=== PATIENT | male | born 1950 | race Caucasian/White ===

== ENCOUNTER 2016-08-22 17:48 | Emergency (ER) | payer BC ==
[2016-08-22 18:23] VITALS: BP 108/67
--- NOTE | 2016-08-22 19:02 | UC ---
Throat Pain/Nasal Isaías HPI - HPI Summary HPI Summary: St for a few days, has been around a lot of children with strep. Denies fever, cough, trouble breathing, rash, or vomiting. - History of Current Complaint Chief Complaint: UCGeneralIllness Stated Complaint: SORE THROAT Time Seen by Provider: 08/22/16 18:55 Hx Obtained From: Patient Onset/Duration: Gradual Onset, Lasting Days Severity: Mild Cough: None Associated Signs & Symptoms: Negative: Hoarseness, Sinus Discomfort, Nasal Discharge, Fever, Vomiting, Rash - Allergies/Home Medications Allergies/Adverse Reactions: Allergies Allergy/AdvReac Type Severity Reaction Status Date / Time No Known Allergies Allergy Verified 08/22/16 18:22 Home Medications: Home Medications NK [No Home Medications Reported] 08/22/16 [History Confirmed 08/22/16] PMH/Surg Hx/FS Hx/Imm Hx Respiratory History Of: Reports: Pneumonia - Surgical History Surgical History: Yes Surgery Procedure, Year, and Place: hernia repair - Family History Known Family History: Negative: Blood Disorder - Social History Lives: With Family Alcohol Use: None Substance Use Type: None Smoking Status (MU): Never Smoked Tobacco - Immunization History Most Recent Influenza Vaccination: no Review of Systems Constitutional: Negative Skin: Negative Eyes: Negative ENT: Sore Throat Respiratory: Negative Cardiovascular: Negative Gastrointestinal: Negative Genitourinary: Negative Motor: Negative Neurovascular: Negative Musculoskeletal: Negative Neurological: Negative Psychological: Negative All Other Systems Reviewed And Are Negative: Yes Physical Exam Triage Information Reviewed: Yes Appearance: Well-Appearing, No Pain Distress, Well-Nourished Vital Signs: Initial Vital Signs Temp 98.6 F 08/22/16 18:18 Pulse 76 08/22/16 18:18 Resp 17 08/22/16 18:18 BP 108/67 08/22/16 18:18 Pulse Ox 99 08/22/16 18:18 Vital Signs Reviewed: Yes Eye Exam: Normal Eyes: Positive: Conjunctiva Clear ENT Exam: Normal ENT: Positive: Normal ENT inspection, Hearing grossly normal, Pharynx normal, TMs normal Dental Exam: Normal Neck exam: Normal Neck: Positive: Supple, Nontender, No Lymphadenopathy Respiratory Exam: Normal Respiratory: Positive: Chest non-tender, Lungs clear, Normal breath sounds, No respiratory distress, No accessory muscle use Cardiovascular Exam: Normal Cardiovascular: Positive: RRR, No Murmur Musculoskeletal Exam: Normal Neurological Exam: Normal Neurological: Positive: Alert Psychological Exam: Normal Skin Exam: Normal Throat Pain/Nasal Course/Dx - Differential Dx/Diagnosis Provider Diagnoses: pharyngitis Discharge - Discharge Plan Condition: Stable Disposition: HOME Patient Education Materials: Pharyngitis (ED) Referrals: Sonja Hughes MD [Primary Care Provider] - Additional Instructions: Rapid strep negative. If your symptoms have not improved within 10 days of onset , please follow up with your primary care provider.
== END 2016-08-22 19:05 | disposition home or self-care (01) ==
LOC: UCCORT 17:48
DX: J02.9 Acute pharyngitis, unspecified (principal)
CPT/HCPCS: 87651; 99211; G0463

== ENCOUNTER 2017-05-08 18:53 | Emergency (ER) | payer BC ==
[2017-05-08 19:48] VITALS: BP 123/78
--- NOTE | 2017-05-08 19:51 | UC ---
Abdominal Pain Male HPI - HPI Summary HPI Summary: 67 YEAR OLD MALE PRESENTS WITH LEFT SIDED RIB PAIN AFTER DOING PHYSICAL THERAPY. - History of Current Complaint Chief Complaint: UCChestPain Stated Complaint: PAIN LEFT SIDE Time Seen by Provider: 05/08/17 19:51 Hx Obtained From: Patient Onset/Duration: Sudden Onset Severity Initially: Moderate Severity Currently: Moderate Pain Scale Used: 0-10 Numeric - 8 - Allergies/Home Medications Allergies/Adverse Reactions: Allergies Allergy/AdvReac Type Severity Reaction Status Date / Time No Known Allergies Allergy Verified 05/08/17 19:47 PMH/Surg Hx/FS Hx/Imm Hx Previously Healthy: Yes - Surgical History Surgical History: Yes Surgery Procedure, Year, and Place: hernia repair - Family History Known Family History: Negative: Blood Disorder - Social History Alcohol Use: None Substance Use Type: None Smoking Status (MU): Never Smoked Tobacco - Immunization History Most Recent Influenza Vaccination: no Review of Systems Constitutional: Negative Skin: Negative Eyes: Negative ENT: Negative Respiratory: Negative Cardiovascular: Negative Gastrointestinal: Negative Genitourinary: Negative Motor: Negative Neurovascular: Negative Musculoskeletal: Other: - LEFT SIDED RIB PAIN Neurological: Negative Psychological: Negative All Other Systems Reviewed And Are Negative: Yes Physical Exam Triage Information Reviewed: Yes Vital Signs: Initial Vital Signs Temp 36.8 C 05/08/17 19:41 Pulse 79 05/08/17 19:41 Resp 16 05/08/17 19:41 BP 123/78 05/08/17 19:41 Pulse Ox 100 05/08/17 19:41 Vital Signs Reviewed: Yes Eye Exam: Normal ENT Exam: Normal Dental Exam: Normal Neck exam: Normal Neck: Positive: 1 Respiratory Exam: Normal Cardiovascular Exam: Normal Abdominal Exam: Normal Musculoskeletal: Positive: Other: - LEFT SIDED RIB PAIN Neurological Exam: Normal Psychological Exam: Normal Skin Exam: Normal Abd Pain Male Course/Dx - Differential Dx/Clinical Impression Provider Diagnoses: LEFT SIDED RIB PAIN. LEFT INTERCOSTAL PAIN Discharge - Discharge Plan Condition: Stable Disposition: HOME Prescriptions: Ibuprofen TAB* [Motrin TAB* 800 MG] 800 mg PO Q6H #30 tab Methocarbamol TAB* [Robaxin 500 MG TAB*] 500 mg PO TID PRN #30 tab PRN Reason: Spasms Patient Education Materials: Rib Contusion (ED) Referrals: Non Staff,Doctor [Medical Doctor] -
--- NOTE | 2017-05-08 21:17 | RAD ---
INDICATION: Left rib pain COMPARISON: None TECHNIQUE: Multiple views of the ribs were obtained. FINDINGS: Bones: There is no evidence of acute rib fracture. There is underlying osteopenia LUNGS: The lungs are clear. There is no pneumothorax. Pleural spaces: There is no evidence of hemothorax. There is biapical scarring. Other: None IMPRESSION: NO ACUTE RIB FRACTURE.
== END 2017-05-08 21:27 | disposition home or self-care (01) ==
LOC: UCCORT 18:53
DX: R07.81 Pleurodynia (principal); R07.82 Intercostal pain
CPT/HCPCS: 93005; 99212; G0463

== ENCOUNTER 2019-07-31 10:09 | Emergency (ER) | payer BC ==
--- NOTE | 2019-07-31 11:40 | UC ---
Respiratory Complaint HPI - HPI Summary HPI Summary: 69 yo with onset of fever on 07/25/19, onset after loading hay, with sweats at night, low grade fevers in the day. Minimal cough. He has pain in the lower ribs with inspiration. No production, no shortness of breath. Decreased appetite, but no vomiting or diarrhea. Possible weight loss. Hx of pneumonia and past hx of sepsis. - History of Current Complaint Chief Complaint: UCGeneralIllness Stated Complaint: NIGHTLY FEVER Time Seen by Provider: 07/31/19 11:30 Hx Obtained From: Patient Onset/Duration: Sudden Onset, Lasting Days - 6 Timing: Intermittent Episodes Severity Initially: Moderate Severity Currently: Mild Pain Intensity: 0 Character: Cough: Nonproductive Aggravating Factors: Exertion, Deep Breaths Alleviating Factors: Nothing Associated Signs And Symptoms: Positive: Fever, Chills. Negative: Wheezing, Dizziness, URI, Nasal Congestion, Hoarseness - Risk Factors Pulmonary Embolism Risk Factors: Negative Cardiac Risk Factors: Negative Pseudomonas Risk Factors: Negative Tuberculosis Risk Factors: Negative - Allergies/Home Medications Allergies/Adverse Reactions: Allergies Allergy/AdvReac Type Severity Reaction Status Date / Time No Known Allergies Allergy Verified 07/31/19 10:45 Home Medications: Home Medications NK [No Home Medications Reported] 07/31/19 [History Confirmed 07/31/19] PMH/Surg Hx/FS Hx/Imm Hx - Additional Past Medical History Additional PMH: past hx of sepsis Previously Healthy: Yes Respiratory History: Pneumonia - Surgical History Surgical History: Yes Surgery Procedure, Year, and Place: hernia repair - Family History Known Family History: Positive: Blood Disorder - mother of leukemia - Social History Occupation: Employed Part-time - [employer]. Alcohol Use: None Substance Use Type: None Smoking Status (MU): Never Smoked Tobacco - Immunization History Most Recent Influenza Vaccination: no Review of Systems All Other Systems Reviewed And Are Negative: Yes Constitutional: Positive: Fever, Chills, Fatigue Skin: Positive: Negative Eyes: Positive: Negative ENT: Negative: Sore Throat, Ear Ache, Sinus Congestion Respiratory: Positive: Cough. Negative: Shortness Of Breath Cardiovascular: Positive: Chest Pain - in lower ribs with deep inspiration Gastrointestinal: Positive: Negative Genitourinary: Positive: Negative Motor: Positive: Negative Neurovascular: Positive: Negative Musculoskeletal: Positive: Negative Neurological/Mental Status: Positive: Negative Psychological: Positive: Negative Is Patient Immunocompromised?: No Physical Exam Vital Signs: Initial Vital Signs Temp 98.3 F 07/31/19 10:38 Pulse 86 07/31/19 10:38 Resp 18 07/31/19 10:38 BP 132/72 07/31/19 10:38 Pulse Ox 100 07/31/19 10:38 Eye Exam: Normal ENT: Positive: Pharynx normal, TMs normal Neck: Positive: Supple, Nontender, No Lymphadenopathy Respiratory: Positive: Lungs clear, Normal breath sounds, No respiratory distress, No accessory muscle use Cardiovascular: Positive: RRR, No Murmur Abdominal Exam: Normal Abdomen Description: Positive: Nontender, No Organomegaly, Soft Musculoskeletal Exam: Normal Neurological Exam: Normal Psychological Exam: Normal Skin Exam: Normal Diagnostics - Radiology No standard instances Radiology Interpretation Completed By: Radiologist - Patient Name: GIOVANNI MAE Medical Record#: [id number] Ordering Physician: Farida Cantu MD Acct.#: [id number] : 1949 Age: 69 Sex: M Location: [facility] Exam Date: 07/31/19 1233 ADM Status: REG ER Order Information: CHEST PA & LAT 2 VWS Accession Number : [id number] CPT: 25113 INDICATION: Cough and fever. History of sepsis COMPARISON: August 07, 2014 chest radiograph TECHNIQUE: Dual-energy PA and lateral views of the chest were obtained. FINDINGS: There is no focal airspace opacification. Biapical pleural-based calcifications are redemonstrated. There is no pleural effusion. The cardiac silhouette is within normal limits. The upper abdominal contents are grossly unremarkable. The bones are osteopenic. IMPRESSION: 1. No acute cardiopulmonary process by radiograph. 2. Unchanged biapical pleural- based calcifications. ____ <Electronically signed by Cortez Tse MD in OV> 07/31/19 1253 Dictated By : Cortez Tse MD Dictated Date/Time: 07/31/19 1250 Transcribed Date/Time: 07/30 1250 Copy to: CC:Tran Campos MD; Farida Cantu MD Imaging - [facility] Imaging - [facility] Imaging - [facility] [id number] [place] [id number] ph ) ph [phone]) ph ([phone]) This report is only to be considered final once signed by the Provider(s) as displayed in the "< Electronically Signed by >" field (s). Absence of a signature indicates the report is in a draft status and still needs to be finalized. In the event this document was created by someone other than the signing Provider, the individual initiating the document will be listed in the "Entered by:" or "Dictated by:" castro. 1 of 1 Respiratory Course/Dx - Course Course Of Treatment: Discussed flu negative and CXR neg. Discussed concern of fever and no dx. He will monitor fever and follow up if persists. - Differential Dx/Diagnosis Differential Diagnosis/HQI/PQRI: Influenza, Lower Resp Infection, Sinusitis, Other - viral syndrome. Provider Diagnosis: Viral syndrome Discharge ED - Sign-Out/Discharge Documenting (check all that apply): Patient Departure All imaging exams completed and their final reports reviewed: Yes - Discharge Plan Condition: Stable Disposition: HOME Patient Education Materials: Viral Syndrome (ED) Referrals: Tran Campos MD [Primary Care Provider] - Additional Instructions: Continue to monitor your fever. I am anticipating that you might have had flu despite the negative test. If fever continues, follow up is needed. The next step will be lab work and further testing. - Billing Disposition and Condition Condition: STABLE Disposition: Home
[2019-07-31 11:55] LABS: Influenza A Molecular Negative (Negative); Influenza B Molecular Negative (Negative)
[2019-07-31 13:15] VITALS: BP 109/63
== END 2019-07-31 13:21 | disposition home or self-care (01) ==
LOC: UCCORT 10:09
DX: B34.9 Viral infection, unspecified (principal); R61 Generalized hyperhidrosis; R05 Cough; R07.81 Pleurodynia; R53.83 Other fatigue; Z87.01 Personal history of pneumonia (recurrent)
CPT/HCPCS: 71046; 99212; G0463